=== PATIENT | male | born 1970 | race African-American/Black ===

== ENCOUNTER 2016-12-29 10:24 | Observation (INO) | payer SELFPAY ==
[~2016-12-29] VITALS: Ht 188 cm; Wt 90.0 kg
[~2016-12-29 10:24] MED LIST: ASPI81TA82 PO; FERR325T PO; LEVE500 PO; LEVE750T8 PO; LISI-357 PO; METH750T2 PO; PROT40TA PO
[2016-12-29] MEDS ORDERED: IOHEXOL 350 MG/ML 10 ML VIAL (for RAD DIAG) IVCONTRAST ONE (10:25)
[2016-12-29 10:26] VITALS: BP 130/90; PULSE 68; RESP 20; TEMP 98.8; O2SAT 99
[2016-12-29] MEDS ORDERED: SODIUM CHLORIDE 0.9% FLUSH 10 ML FLUSH IVF PRN (10:45)
[2016-12-29 11:08] LABS: AUTOMATED NEUTROPHIL # 3.3 TH/MM3 (1.8-7.7); BASOPHIL % 0.9 % (0.0-2.0); EOSINOPHIL # 0.1 TH/MM3 (0-0.4); EOSINOPHIL % 1.9 % (0.0-4.0); HEMATOCRIT 34.2 % (39.0-51.0); HEMO FLAGS DIFF FINAL; LYMPH % 22.8 % (9.0-44.0); LYMPHOCYTE # 1.2 TH/MM3 (1.0-4.8); MEAN CELL VOLUME 76.1 FL (80.0-100.0); MEAN CORPUSCULAR HGB CONC 31.5 % (32.0-36.0); MONO % 11.6 % (0.0-8.0); NEUT % 62.8 % (16.0-70.0); PLATELET COUNT 226 TH/MM3 (150-450); RED CELL DISTRIBUTION WIDTH 18.8 % (11.6-17.2); WHITE BLOOD COUNT 5.2 TH/MM3 (4.0-11.0)
[2016-12-29 11:15] LABS: INTERNATIONAL NORMALIZED RATIO 0.9 RATIO; PROTHROMBIN TIME - PATIENT 10.2 SEC (9.8-11.6)
[2016-12-29] MEDS ORDERED: ALUMINUM/MAGNESIUM/SIMETH 30 ML CUP PO ONE (11:15)
[2016-12-29] MEDS ORDERED: ONDANSETRON HCL 4 MG/2 ML VIAL IVP ONE (11:15)
[2016-12-29] MEDS ORDERED: LIDOCAINE VISCOUS 2% SOLN 15 ML UDC PO ONE (11:15)
[2016-12-29] MEDS ORDERED: FAMOTIDINE 20 MG/2 ML VIAL IV PUSH ONE (11:15)
[2016-12-29 11:17] LABS: ANION GAP 10 MEQ/L (5-15); AST (GOT) 29 U/L (15-37); BICARBONATE 26.8 MEQ/L (21.0-32.0); BLOOD UREA NITROGEN 12 MG/DL (7-18); CHLORIDE 99 MEQ/L (98-107); GLOMERULAR FILTRATION RATE 81 ML/MIN (>89); MAGNESIUM 1.6 MG/DL (1.5-2.5); POTASSIUM 3.5 MEQ/L (3.5-5.1); SODIUM (NA) 136 MEQ/L (136-145)
[2016-12-29 11:18] LABS: ALT (GPT) 23 U/L (12-78)
[2016-12-29 11:22] LABS: ALKALINE PHOSPHATASE 72 U/L (45-117); CREATINE KINASE 237 U/L (39-308); TOTAL BILIRUBIN ADULT 0.6 MG/DL (0.2-1.0)
--- NOTE | 2016-12-29 11:49 | RADRPT ---
EXAM DATE/TIME: 12/29/2016 10:44 [facility] COMPARISON: CHEST SINGLE AP, June 05, 2016, 23:53. INDICATIONS : Chest pain. MEDICAL HISTORY : None. SURGICAL HISTORY : None. ENCOUNTER: Initial ACUITY: 1 day PAIN SCORE: 8/10 LOCATION: Bilateral center chest FINDINGS: A single view of the chest demonstrates the lungs to be symmetrically aerated without evidence of mas s, infiltrate or effusion. The cardiomediastinal contours are unremarkable. Osseous structures are intact. CONCLUSION: No acute disease. Mert Kline MD on December 29, 2016 at 11:47 Board Certified Radiologist. This report was verified electronically.
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
[2016-12-29] MEDS ORDERED: NITROGLYCERIN 0.4 MG SL 25 TABS/BTL SL SCH (13:45)
--- NOTE | 2016-12-29 13:46 | RADRPT ---
EXAM DATE/TIME: 12/29/2016 13:08 [facility] COMPARISON: CT ABDOMEN & PELVIS W CONTRAST, May 24, 2013, 23:07. CT THORAX W CONTRAST, June 06, 2016, 0: 32. INDICATIONS : Medial chest pain for two days, IV CONTRAST: 60 cc Omnipaque 350 (iohexol) IV RADIATION DOSE: 23.56 CTDIvol (mGy) MEDICAL HISTORY : Seizures. Hypertension. Diabetes,liver disease SURGICAL HISTORY : Appendectomy. ENCOUNTER: Initial ACUITY: 2 days PAIN SCALE: 8/10 LOCATION: medial Chest TECHNIQUE: Volumetric scanning of the chest was performed using a pulmonary embolism protocol MIP images were re constructed. Using automated exposure control and adjustment of the mA and/or kV according to patien t size, radiation dose was kept as low as reasonably achievable to obtain optimal diagnostic quality images. DICOM format image data is available electronically for review and comparison. Follow-up recommendations for detected pulmonary nodules are based at a minimum on nodule size and pa tient risk factors according to Fleischner Society Guidelines. FINDINGS: PULMONARY ARTERIES: No filling defects are seen in the pulmonary arteries through the segmental level. LUNGS: There is a small tubular density in the posterior medial right lung base which has shown long-term st ability. The lungs are otherwise clear. PLEURAE: There is no pleural thickening or pleural effusion. MEDIASTINUM: There are mildly prominent central mediastinal lymph nodes which are low density and about a centimet er in size with one in the precarinal region and one in the AP window. These also appear to be stable . MUSCULOSKELETAL: Within normal limits for patient age. MISCELLANEOUS: The visualized upper abdominal organs demonstrate no acute abnormality. CONCLUSION: No evidence of pulmonary embolism Korey Osborne MD on December 29, 2016 at 13:34 Board Certified Radiologist. This report was verified electronically.
[2016-12-29] MEDS ORDERED: ASPIRIN 81 MG CHEW TAB CHEW ONE (14:00)
[2016-12-29 14:14] VITALS: BP 114/81; PULSE 60; RESP 16; O2SAT 100
[2016-12-29] MEDS ORDERED: NITROGLYCERIN 0.4 MG SL 25 TABS/BTL SL PRN (14:30)
[2016-12-29] MEDS ORDERED: ONDANSETRON HCL 4 MG/2 ML VIAL IV PRN (14:30)
[2016-12-29 14:45] VITALS: O2SAT 97
[2016-12-29 15:20] VITALS: BP 144/89; PULSE 66; RESP 16; TEMP 98.4; O2SAT 99
[2016-12-29 15:42] LABS: CREATINE KINASE 213 U/L (39-308)
--- NOTE | 2016-12-29 16:07 | HHI.HP ---
HPI Primary Care Physician No Primary Care Physician Chief Complaint Epigastric pain History of Present Illness 46-year-old male with known seizure disorder and CVA (2013) since the emergency room for further evaluation epigastric pain. Onset 2 days ago. Location epigastric. Characterized as a "ball in my stomach with burning into my throat. " Associated symptoms include nausea and vomiting. Reports yellow emesis. No appetite 2 days. States "it feels like something is stuck in my stomach." No dysphasia. Denies difficulty with liquids or eating foods. Endorses known history of GERD. Remember what medication he was prescribed, has not taken acid reflux medicine for a couple months. No known precipitating or relieving factors. Endorses similar pain in the past although not as severe. Per [facility]- EGD and colonoscopy completed June relieved mild antral gastritis and internal and external hemorrhoids. Review of Systems General: No fatigue,weakness, fever, chills, or recent illness. Has been in his general state of health. Decrease appetite last 2 days. HEENT: No [place], no nasal congestion or drainage, no dysphasia CV: As stated above. No CP or pressure, points to epigastric area. RESP: No SOB, cough, sputum production, or hemoptysis GI: Intermittent nausea x2 days, x1 yellow emesis. Denies coffee ground or bloody emesis. No bowel changes, diarrhea, constipation, pain, distention, melena, or blood in the stool. : No dysuria or hematuria EXT: No lower leg edema MS: No discomfort or change in ROM NEURO: No LOC PSYCH: No anxiety, depression, or suicidal ideation Past Family Social History Allergies: Coded Allergies: acetaminophen (Unverified Allergy, Unknown, Itching, 12/13/16) hydrocodone (Unverified Allergy, Unknown, Itching, 12/13/16) phenytoin (Unverified Allergy, Unknown, welts in the body , 12/13/16) Past Medical History Seizure disorder (dx age 15), CVA (2013), GERD, gastritis, internal and external hemorrhoids, polysubstance abuse Past Surgical History Left hip surgery as a child, appendectomy, peg tube with removal Reported Medications Active Reported Keppra (Levetiracetam) 500 Mg Tab 500 Mg PO BID Aspirin 81 mg daily Reports he should be taking iron supplements but haven't for a long time Active Ordered Medications Current Medications Medications (Trade) Dose Ordered Sig/Elenita Route Start Time Stop Time Status Last Admin (NS Flush) 2 ml UNSCH PRN IVF 12/29/16 10:45 (NS Flush) 2 ml BID IV FLUSH 12/29/16 21:00 (Zofran Inj) 4 mg Q6H PRN IV 12/29/16 14:30 (Nitrostat Sl) 0.4 mg UNSCH PRN SL 12/29/16 14:30 (Aspirin) 325 mg DAILY PO 12/30/16 09:00 Family History Noncontributory for early onset cardiovascular disease. Social History No known diabetes, hyperlipidemia, or hypertension. Current smoker, reports 2-3 cigarettes daily. Quit drinking alcohol 3 weeks ago , reports was drinking 1 pint/daily. Endorses cocaine use-last used on Monday. Unemployed. Attending school to become a [employer]. Past Cardiac Testing None Echocardiogram (2013)- Physical Exam Vital Signs Vital Signs Date Time Temp Pulse Resp B/P (MAP) Pulse Ox O2 Delivery O2 Flow Rate FiO2 12/29/16 15:20 98.4 66 16 144/89 (107) 99 12/29/16 15:00 12/29/16 14:57 20 12/29/16 14:45 97 21 12/29/16 14:14 60 16 114/81 (92) 100 Room Air 12/29/16 10:26 98.8 68 20 130/90 (103) 99 Room Air Physical Exam GENERAL: Alert WN, WD, NAD, pale appearing, pleasant, male HEAD: NC, AT EYES: Sclera clear, conjunctiva pale, pupils equal and round ENT: Mucous membranes pink and moist CV: RRR, without murmur, rub, gallop, no JVD, S1-S2 no S3-S4. RESP:Diminished lungs throughout bilateral, no crackles, wheeze, rhonchi, symmetrical chest rise, nonlabored, able to speak in full sentences ABD: Soft, Epigastric area tender with palpation, negative Stahl's sign. Generalized abdominal discomfort. Nondistended. No masses, positive bowel tones. BACK: No CVAT, no scoliosis EXT: Pulses +24, no dependent edema MS: Normal tone 4 extremities, nontender, no obvious deformities, full range of motion NEURO: CN II through CN XII grossly intact, motor strength 5/5 PSYCH: A+O 3, pleasant affect, appropriate speech, appropriate mood and affect , insight and judgment SKIN: Normal turgor, normal texture, no lesions, no rashes, brisk cap refill, even hair distribution, multiple tattoos Laboratory Laboratory Tests Test 12/29/16 10:45 12/29/16 14:45 White Blood Count 5.2 Red Blood Count 4.50 Hemoglobin 10.8 Hematocrit 34.2 Mean Corpuscular Volume 76.1 Mean Corpuscular Hemoglobin 24.0 Mean Corpuscular Hemoglobin Concent 31.5 Red Cell Distribution Width 18.8 Platelet Count 226 Mean Platelet Volume 8.4 Neutrophils (%) (Auto) 62.8 Lymphocytes (%) (Auto) 22.8 Monocytes (%) (Auto) 11.6 Eosinophils (%) (Auto) 1.9 Basophils (%) (Auto) 0.9 Neutrophils # (Auto) 3.3 Lymphocytes # (Auto) 1.2 Monocytes # (Auto) 0.6 Eosinophils # (Auto) 0.1 Basophils # (Auto) 0.0 CBC Comment DIFF FINAL Differential Comment Prothrombin Time 10.2 Prothromb Time International Ratio 0.9 Activated Partial Thromboplast Time 28.0 D-Dimer Quantitative (PE/DVT) 0.52 Blood Urea Nitrogen 12 Creatinine 1.17 Random Glucose 84 Total Protein 7.9 Albumin 3.5 Calcium Level 8.8 Magnesium Level 1.6 Alkaline Phosphatase 72 Aspartate Amino Transf (AST/SGOT) 29 Alanine Aminotransferase (ALT/SGPT) 23 Total Bilirubin 0.6 Sodium Level 136 Potassium Level 3.5 Chloride Level 99 Carbon Dioxide Level 26.8 Anion Gap 10 Estimat Glomerular Filtration Rate 81 Total Creatine Kinase 237 213 Creatine Kinase MB 1.0 Troponin I LESS THAN 0.02 LESS THAN 0.02 B-Type Natriuretic Peptide 12 Lipase 228 Result Diagram: 12/29/16 1045 12/29/16 [address] Angiography 12/29/16 1159 Signed Impressions: Service Date/Time: November 13:08 - CONCLUSION: No evidence of pulmonary embolism Korey Osborne MD Chest X-Ray 12/29/16 1035 Signed Impressions: Service Date/Time: November 10:44 - CONCLUSION: No acute disease. Mert Kline MD Course EKG NSR, normal axis, no st t segment changes Caprini VTE Risk Assessment Caprini VTE Risk Assessment: No/Low Risk (score <= 1) Caprini Risk Assessment Model Point Value = 1 Point Value = 2 Point Value = 3 Point Value = 5 Age 41-60 Minor surgery BMI > 25 kg/m2 Swollen legs Varicose veins or History of unexplained or recurrent spontaneous Oral contraceptives or hormone replacement Sepsis (< 1 month) Serious lung disease, including pneumonia (< 1 month) Abnormal pulmonary function Acute myocardial infarction Congestive heart failure (< 1 month) History of inflammatory bowel disease Medical patient at bed rest Age 61-74 Arthroscopic surgery Major open surgery (> 45 min) Laparoscopic surgery (> 45 min) Malignancy Confined to bed (> 72 hours) Immobilizing plaster cast Central venous access Age >= 75 History of VTE Family history of VTE Factor V Leiden Prothrombin [id number] Lupus anticoagulant Anticardiolipin antibodies Elevated serum homocysteine Heparin-induced thrombocytopenia Other congenital or acquired thrombophilia Stroke (< 1 month) Elective arthroplasty Hip, pelvis, or leg fracture Acute spinal cord injury (< 1 month) Prophylaxis Regimen Total Risk Factor Score Risk Level Prophylaxis Regimen 0-1 Low Early ambulation 2 Moderate Order ONE of the following: *Sequential Compression Device (SCD) *Heparin 5000 units SQ BID 3-4 Higher Order ONE of the following medications: *Heparin 5000 units SQ TID *Enoxaparin/Lovenox 40 mg SQ daily (WT < 150 kg, CrCl > 30 mL/min) *Enoxaparin/Lovenox 30 mg SQ daily (WT < 150 kg, CrCl > 10-29 mL/min) *Enoxaparin/Lovenox 30 mg SQ BID (WT < 150 kg, CrCl > 30 mL/min) AND/OR *Sequential Compression Device (SCD) 5 or more Highest Order ONE of the following medications: *Heparin 5000 units SQ TID (Preferred with Epidurals) *Enoxaparin/Lovenox 40 mg SQ daily (WT < 150 kg, CrCl > 30 mL/min) *Enoxaparin/Lovenox 30 mg SQ daily (WT < 150 kg, CrCl > 10-29 mL/min) *Enoxaparin/Lovenox 30 mg SQ BID (WT < 150 kg, CrCl > 30 mL/min) AND *Sequential Compression Device (SCD) Assessment and Plan Assessment and Plan #1 Atypical chest pain-admitted to chest pain. Discomfort clearly epigastric, however will rule out with 3 sets of EKG and cardiac enzymes. Will be seen and evaluated by Dr. Florinda Moseley. Further disposition to follow after evaluation from loading unit tool setter. #2 GERD-GI cocktail and Pepcid given in ER. Protonix daily. #3 History of seizure disorder-continue Keppra #4 Tobacco use-strongly encouraged and stressed importance of tobacco cessation. Instructed to quit smoking. #5 Cocaine use-risks of cocaine use given, included and limited to PR and . Instructed to quit using cocaine. #6 Anemia-no acute finding of bleeding, denying any source of bleeding, history of iron deficiency anemia. Encouraged him to take iron supplements as previously instructed. Seen and evaluated by Dr. Moseley. Plan was to proceed with exercise stress test this evening and if unremarkable discharge later this evening. Patient agreed initially, however RN states he signed out AMA. Yareli Lagos Dec 29, 2016 16:07
--- NOTE | 2016-12-29 17:55 | EKG ---
Date Performed: 12/29/2016 Time Performed: 10:41:41 PTAGE: 46 years EKG: Sinus rhythm NORMAL ECG INTERPRETATION BASED ON A DEFAULT AGE OF 40 YEARS Compared to prior tracing no significan t change PREVIOUS TRACING : 06/27/2016 16.35 DOCTOR: Yandel Julien Interpretating Date/Time 12/29/2016 17:53:08
--- NOTE | 2016-12-29 18:07 | EKG ---
Date Performed: 12/29/2016 Time Performed: 14:49:16 PTAGE: 46 years EKG: SINUS BRADYCARDIA NONSPECIFIC T-WAVE ABNORMALITY BORDERLINE ECG Since PREVIOUS TRACING , no significant change noted PREVIOUS TRACIN12/29/2016 10.41 DOCTOR: Florinda Moseley Interpretating Date/Time 12/29/2016 18:07:25
[2016-12-29 18:10] LABS: CREATINE KINASE 192 U/L (39-308)
[2016-12-29 18:22] LABS: CKMB 0.6 NG/ML (0.5-3.6)
[2016-12-29] MEDS ORDERED: SODIUM CHLORIDE 0.9% FLUSH 10 ML FLUSH IV FLUSH SCH (21:00)
--- NOTE | 2016-12-30 08:46 | EKG ---
Date Performed: 12/29/2016 Time Performed: 17:05:23 PTAGE: 46 years EKG: SINUS BRADYCARDIA POSSIBLE RIGHT VENTRICULAR CONDUCTION DELAY POSSIBLE LEFT VENTRICULAR HYP ERTROPHY ABNORMAL ECG Since PREVIOUS TRACING , no significant change noted PREVIOUS TRACIN12/29/2016 14.49 DOCTOR: Florinda Moseley Interpretating Date/Time 12/30/2016 08:46:04
[2016-12-30] MEDS ORDERED: ASPIRIN 325 MG TAB PO SCH (09:00)
== END 2016-12-29 19:25 | disposition left against medical advice (07) ==
LOC: NEPC 10:24 → NEDA 13:51 → NEPHCDU 15:09
PROVIDERS: ADMIT Internal Medicine Interventional Cardiology; ATTEND Internal Medicine Interventional Cardiology
DX: R07.9 Chest pain, unspecified (principal); G40.909 Epilepsy, unspecified, not intractable, without status epilepticus; F14.10 Cocaine abuse, uncomplicated; F17.200 Nicotine dependence, unspecified, uncomplicated; I10 Essential (primary) hypertension; R94.31 Abnormal electrocardiogram [ECG] [EKG]; K21.9 Gastro-esophageal reflux disease without esophagitis; D64.9 Anemia, unspecified
CPT/HCPCS: 71010; 71275; 80053; 82550; 82552; 83690; 83735; 83880; 84484; 85025; 85379; 85610; 85730; 93005; 96374; 96375; 99285; G0378; J2405; Q9967

== ENCOUNTER 2017-07-23 18:44 | Emergency (ER) | payer OTHER ==
[~2017-07-23] VITALS: Ht 188 cm; Wt 90.0 kg
[~2017-07-23 18:44] MED LIST changes: -ASPI81TA82 PO; -FERR325T PO; -LEVE750T8 PO; -LISI-357 PO; -METH750T2 PO; -PROT40TA PO
[2017-07-23 19:04] VITALS: BP 138/88; PULSE 95; RESP 16; TEMP 99; O2SAT 99
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
[2017-07-24] MEDS ORDERED: ROBA750T PO (00:29)
[2017-07-24] MEDS ORDERED: KETO10 PO (00:29)
== END 2017-07-24 04:13 | disposition home or self-care (01) ==
LOC: NEPD 18:44
DX: S13.4XXA Sprain of ligaments of cervical spine, initial encounter (principal); S23.9XXA Sprain of unspecified parts of thorax, initial encounter; X58.XXXA Exposure to other specified factors, initial encounter; F41.9 Anxiety disorder, unspecified; F32.9 Major depressive disorder, single episode, unspecified; I10 Essential (primary) hypertension; E11.9 Type 2 diabetes mellitus without complications; K21.9 Gastro-esophageal reflux disease without esophagitis; Z86.73 Personal history of transient ischemic attack (TIA), and cerebral infarction without residual deficits
CPT/HCPCS: 72040; 72072; 72100; 99283

== ENCOUNTER 2017-10-09 17:17 | Emergency (ER) | payer SELFPAY ==
[~2017-10-09] VITALS: Ht 188 cm; Wt 88.0 kg
[~2017-10-09 17:17] MED LIST changes: +KETO10 PO; +ROBA750T PO
[2017-10-09 17:44] VITALS: BP 115/76; PULSE 82; RESP 17; TEMP 98.6; O2SAT 100
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
[2017-10-09 18:12] VITALS: BP 175/74
== END 2017-10-09 18:15 | disposition left against medical advice (07) ==
LOC: NEPE 17:17
DX: R56.9 Unspecified convulsions (principal)
CPT/HCPCS: 99283